=== PATIENT | female | born 1990 | race Caucasian/White ===

== ENCOUNTER 2023-11-19 20:45 | Emergency (ER) | payer SELFPAY ==
[~2023-11-19] VITALS: Ht 165.1 cm; Wt 70.0 kg
[2023-11-19 20:57] VITALS: BP 112/66; PULSE 81; RESP 18; TEMP 98; O2SAT 100
[2023-11-19 21:57] LABS: BASOPHILS % 0.7 % (0.0-2.0); HEMATOCRIT. 38.8 % (36.0-48.0); LYMPHOCYTES % 35.1 % (20.0-50.0); MEAN CORPUSCULAR HEMOGLOBIN 29.5 pg (28.0-32.0); MEAN CORPUSCULAR HGB CONC 33.5 g/dL (31.0-37.0); MONOCYTES % 6.7 % (2.0-8.0); NEUTROPHILS % 55.5 % (40.0-76.0); PLATELET 271 x1000/uL (130-400); RED BLOOD CELL COUNT 4.42 mill/uL (4.2-5.4); RED CELL DISTRIBUTION WIDTH 13.4 % (11.6-14.6); WHITE BLOOD COUNT 6.7 x1000/uL (4.5-11.0)
[2023-11-19 22:13] LABS: HCG SCREEN NEGATIVE
[2023-11-19 22:15] LABS: ALANINE AMINOTRANSFERASE 8 IU/L (10-49); ALBUMIN 3.7 g/dL (3.2-4.8); ASPARTATE AMINOTRANSFERASE 17 IU/L (<34); BILIRUBIN TOTAL 0.2 mg/dL (0.1-1.0); CALCIUM 8.7 mg/dL (8.7-10.4); CARBON DIOXIDE 21 mEq/L (21-32); CHLORIDE 105 mEq/L (98-107); CREATININE 0.6 mg/dL (0.6-1.0); GLUCOSE 93 mg/dL (70-105); PROTEIN TOTAL 7.4 g/dL (6.0-8.3); SODIUM 135 mEq/L (136-145); UREA NITROGEN BLOOD 8 mg/dL (9-23)
[2023-11-19 22:19] LABS: TROPONIN I HIGH SENSITIVITY < 4 ng/L (3.0-34)
== END 2023-11-19 22:38 | disposition home or self-care (01) ==
LOC: ER 20:45
DX: R55 Syncope and collapse (principal); F31.9 Bipolar disorder, unspecified; F12.10 Cannabis abuse, uncomplicated
CPT/HCPCS: 36415; 80053; 84484; 84703; 85025; 93005; 99284